=== PATIENT | female | born 1960 | race Caucasian/White ===

== ENCOUNTER 2017-12-12 13:16 | Outpatient (CLI) | payer OTHER ==
[~2017-12-12 13:16] MED LIST: BARIUM SULFATE 340 ML SUSP.RECON***PROCEDURE AREA ONLY**DONT ENTER PO ONE
[2017-12-12] MEDS ORDERED: BARIUM SULFATE/METHYLCELLULOSE 600 ML SUSPENSION BOTTLE**DONT ENTER PO ONE (13:55)
== END 2017-12-12 23:59 | disposition home or self-care (01) ==
LOC: RAD 13:16
PROVIDERS: ATTEND Otolaryngology
DX: R13.14 Dysphagia, pharyngoesophageal phase (principal); K21.9 Gastro-esophageal reflux disease without esophagitis; R05 Cough
CPT/HCPCS: 74220; 74230